=== PATIENT | female | born 1950 | race Caucasian/White ===

== ENCOUNTER 2018-01-16 18:46 | Emergency (ER) | payer OTHER, BC ==
[2018-01-16 19:18] VITALS: BP 157/76; PULSE 99; TEMP 98.3; BMI 31.6
[2018-01-16] MEDS ORDERED: ACETAMINOPHEN 325 MG TABLET (FP) PO ONE (20:01)
--- NOTE | 2018-01-16 20:02 | PDOC ---
History of Present Illness - General History Source: Patient Exam Limitations: No Limitations - History of Present Illness Initial Comments: 67 YOF with history of osteoporosis, spinal stenosis, migraines, graves disease s/p radioactive treatment, HLD, and HTN, presenting with left upper arm pain for 2 days. LUE pain described as achy, exacerbated with lifting and movement. +heavy lifting of groceries and large pet cat. No direct trauma or falls. Patient reports having elevated BP as a result of pain. Denies neck pain or back pain, paresthesia, weakness, chest pain headache, or dizziness. Surgical hx: tonsillectomy Social: non contributory, no etoh or tobacco use. 01/16/18 20:19 <Lizbeth Eagle - Last Filed: 01/16/18 20:19> - General History Source: Patient Exam Limitations: No Limitations <Ruth Swenson - Last Filed: 01/16/18 21:10> - General Chief Complaint: Pain Stated Complaint: left arm pain Time Seen by Provider: 01/16/18 19:12 Past History <Lizbeth Eagle - Last Filed: 01/16/18 20:19> - Past Medical History COPD: No Hypercholesterolemia: Yes Liver Disease: (liver hemangioma) Thyroid Disease: Yes Other medical history: migraine - Suicide/Smoking/Psychosocial Hx Smoking Status: No Smoking History: Never smoked Number of Cigarettes Smoked Daily: 0 Hx Alcohol Use: No Drug/Substance Use Hx: No Substance Use Type: None <Ruth Swenson - Last Filed: 01/16/18 21:10> - Past Medical History Allergies/Adverse Reactions: Allergies Allergy/AdvReac Type Severity Reaction Status Date / Time Penicillins Allergy Verified 01/16/18 19:01 methimazole [From Tapazole] AdvReac Severe Verified 01/16/18 19:02 Home Medications: Ambulatory Orders Ezetimibe/Simvastatin [Vytorin 10-10 mg Tablet] 1 each PO DAILY 07/15/11 Levothyroxine [Synthroid -] 88 mcg PO DAILY 07/15/11 Nadolol 20 mg PO DAILY 07/15/11 Cyclobenzaprine HCl [Flexeril -] 5 mg PO TID PRN #15 tablet 01/16/18 Ranitidine HCl [Zantac] 150 mg PO ASDIR 01/16/18 Review of Systems - Review of Systems Able to Perform ROS?: Yes Comments:: Constitutional: no fevers or chills. HEENT: no headache or dizziness. No congestion. No visual/hearing disturbances. CVS: no cp or syncope. Resp: no sob. No cough. Abdomen: no abdominal pain, nausea or vomiting. Genitourinary: no urinary sx, hematuria. MUSCULOSKELETAL: +Myalgia +Left arm pain. No swelling. No neck or back pain. SKIN: no redness or skin changes, no discharge, no rash. No wounds. Hematologic: no easy bruising/bleeding. NEUROLOGIC: No headache, dizziness, LOC or altered mental status. No weakness, numbness or tingling. All other systems reviewed and negative, or as documented in HPI. 01/16/18 20:19 <Lizbeth Eagle - Last Filed: 01/16/18 20:19> *Physical Exam - Vital Signs Last Vital Signs Temp Pulse Resp BP Pulse Ox 98.3 F 99 H 18 157/76 100 01/16/18 19:05 01/16/18 19:05 01/16/18 19:05 01/16/18 19:05 01/16/18 19:05 - Physical Exam Comments: General: NAD, well appearing Neck: no cervical tenderness or midline tenderness. Vascular: 2+ DP pulses symmetric and equal. Resp: CTAB, normal and even respirations, no respiratory distress CVS: RRR, no murmurs, 2+ peripheral pulses throughout, no peripheral edema Abdomen: soft, NTND, no peritoneal signs. Back: no midline tenderness, no stepoffs, FROM. MSK Upper Extremity: Shoulder abduction/adduction/flexion/extension and prox strength 5/5 actively against resistance, though unable to raise arm above 90 degrees at level of shoulder and above.. 5/5 shoulder shrug strength. deltoid sensation intact; sensation grossly intact in median/radial/ulnar distribution. distal meters superintendent strength 5/5. 2+ radialis pulses bilaterally and symmetric. no tenderness along deep venous system. +left biceps and upper arm muscle tenderness, worse with extension. No elbow or wrist or distal tenderness, FROM in all extrem Skin: color normal color, warm and well perfused. 01/16/18 20:20 <Lizbeth Eagle - Last Filed: 01/16/18 20:19> - Vital Signs Last Vital Signs Temp Pulse Resp BP Pulse Ox 98.3 F 99 H 18 157/76 100 01/16/18 19:05 01/16/18 19:05 01/16/18 19:05 01/16/18 19:05 01/16/18 19:05 <Ruth Swenson - Last Filed: 01/16/18 21:10> Heart Score/ECG Review - ECG Impressions Normal ECG: Yes Comment:: 01/16/18 20:02 EKG normal sinus rhythm, no interval abnormalities, narrow QRS, ST and T wave segments and morphology normal. Nonspecific T wave abnormalities <Ruth Swenson - Last Filed: 01/16/18 21:10> ED Treatment Course - Medications Given in the ED: ED Medications Discontinued Medications Generic Name Dose Route Start Last Admin Trade Name Moralesq PRN Reason Stop Dose Admin Acetaminophen 975 mg 01/16/18 20:01 01/16/18 20:06 Tylenol - PO 01/16/18 20:02 975 mg ONCE ONE Administration Cyclobenzaprine HCl 5 mg 01/16/18 20:15 01/16/18 20:06 Cyclobenzaprine Hcl PO 5 mg DAILY ARTHUR Administration <Lizbeth Eagle - Last Filed: 01/16/18 20:19> Medical Decision Making - Medical Decision Making 01/16/18 21:10 YUE 67 YOF with history of osteoporosis, spinal stenosis, migraines, graves disease s/p radioactive treatment, HLD, and HTN, presenting with left upper arm pain for 2 days. +heavy lifting Vital signs reviewed, wnl. Mild htn, but in pain EKG normal sinus rhythm, no interval abnormalities, narrow QRS, ST and T wave segments and morphology normal. Nonspecific T wave abnormalities ED course: analgesia with flexeril low dose and tylenol for left arm pain. Very reproducible in pain with heavy lifting and strenuous activity. Doubt cardiac, no cp, sob or dizziness or syncope. Doubt clinically based on HPI and PE that this is cardiovascular. No trauma, doubt fx or bony disturbances. No neck or back pain, doubt spinal or central etiology. Dispo: I discussed the physical exam findings, ancillary test results and final diagnoses with the patient. I answered all of the patient's questions. The patient was satisfied with the care received and felt comfortable with the discharge plan and treatment plan. The patient will return to the Emergency Department with any new, persistent or worsening symptoms. Supportive measures, avoid heavy lifting and strenuous activities. analgesia. <Ruth Swenson - Last Filed: 01/16/18 21:10> *DC/Admit/Observation/Transfer - Attestations Scribe Attestion: 01/16/18 20:20 Documentation prepared by MOON Bryant, acting as medical technologist prn for Ruth Swenson MD. <Lizbeth Eagle - Last Filed: 01/16/18 20:19> - Discharge Dispostion Decision to Admit order: No - Attestations Physician Attestion: 01/16/18 20:13 I, Ruth Swenson MD, attest that this document has been prepared under my direction and personally reviewed by me in its entirety. I further attest, that it accurately reflects all work, treatment, procedures and medical decision -making performed by me. <Ruth Swenson - Last Filed: 01/16/18 21:10> Diagnosis at time of Disposition: Left arm pain, Muscle strain, upper arm - Discharge Dispostion Disposition: HOME Condition at time of disposition: Stable - Prescriptions Prescriptions: Cyclobenzaprine HCl [Flexeril -] 5 mg PO TID PRN #15 tablet PRN Reason: Muscle Spasms - Referrals Referrals: Rik Mims MD [Staff Physician] - - Patient Instructions Printed Discharge Instructions: DI for Muscle Strain, DI for Arm Pain Additional Instructions: you most likely have a strain of your arm, does not sound cardiac or vascular may apply heat packs as needed, maximum 15 minutes flexeril three times a day as needed for muscle spasms, preferably at nighttime before you sleep. it may cause dizziness and sleepiness. tylenol as needed for pain. follow up with your doctor you can also sleep and rest your arm on pillow avoid straining or heavy lifting, ask for help and minimize trauma.
[2018-01-16] MEDS ORDERED: ACETAMINOPHEN 325 MG TABLET (FP) ONE (20:03)
[2018-01-16] MEDS ORDERED: CYCLOBENZAPRINE HCL 10 MG TABLET (FP) ONE (20:03)
[2018-01-16] MEDS ORDERED: CYCLOBENZAPRINE HCL 5 MG TABLET PO SCH (20:15)
--- NOTE | 2018-01-23 09:50 | EKG ---
Test Reason : Blood Pressure : / mmHG Vent. Rate : 096 BPM Atrial Rate : 096 BPM P-R Int : 176 ms QRS Dur : 084 ms QT Int : 372 ms P-R-T Axes : 056 -07 038 degrees QTc Int : 469 ms NORMAL SINUS RHYTHM NONSPECIFIC ST ABNORMALITY WHEN COMPARED WITH ECG OF 16-JUL-2011 08:56, NO SIGNIFICANT CHANGE WAS FOUND Confirmed by AL RUIZ MD ([id number]) on 01/23/2018 9:50:14 AM Referred By: MD AGUIAR Confirmed By:AL RUIZ MD
== END 2018-01-16 20:15 | disposition home or self-care (01) ==
LOC: FER 18:46
DX: M79.601 Pain in right arm (principal); S46.812A Strain of other muscles, fascia and tendons at shoulder and upper arm level, left arm, initial encounter; X58.XXXA Exposure to other specified factors, initial encounter; Y93.89 Activity, other specified; Y92.9 Unspecified place or not applicable; E78.00 Pure hypercholesterolemia, unspecified; E05.00 Thyrotoxicosis with diffuse goiter without thyrotoxic crisis or storm; E78.5 Hyperlipidemia, unspecified; I10 Essential (primary) hypertension
CPT/HCPCS: 93005; 99282-25

== ENCOUNTER 2018-01-18 10:42 | Emergency (ER) | payer OTHER, BC ==
[2018-01-18 10:55] VITALS: BP 135/70; PULSE 76; TEMP 98; BMI 31.6
--- NOTE | 2018-01-18 11:07 | PDOC ---
History of Present Illness - General Chief Complaint: Pain Stated Complaint: PAIN,LT ARM Time Seen by Provider: 01/18/18 11:00 History Source: Patient Exam Limitations: No Limitations - History of Present Illness Initial Comments: CHIEF COMPLAINT: 67 y/o afebrile female with OA, spinal stenosis, migraines, graves disease s/p radioactive tx, HLD, HTN c/o continued left shoulder and arm pain with decreased ROM. HISTORY OF PRESENT ILLNESS: [facility] the same issue. was cleared for cardiac etiology and discharged with flexeril and tylenol. The patient states she can't take the flexeril because it makes her too drowsy so she only takes at night. The tylenol does nothing and now her arm has even less mobility and more pain. She cannot put a bra or shirt on and can barely lift her arm. She denies new injury. Vital signs on arrival are within normal limits. REVIEW OF SYSTEMS: GENERAL/CONSTITUTIONAL: No fever/chills. No weakness. No weight change. MUSCULOSKELETAL: +left shoulder and upper arm pain. No neck or back pain. SKIN: No rash or easy bruising. NEUROLOGIC: No headache, vertigo, loss of consciousness, or loss of sensation. PHYSICAL EXAM: VITAL_SIGNS: within normal limits GENERAL_APPEARANCE: alert, cooperative, mo obvious discomfort. MENTAL_STATUS: speech clear, oriented X 3, responds appropriately to questions. NEURO: motor intact and sensory intact in injured extremity. EXTREMITIES: Unable to abduct left arm > 45 degrees, a significant decrease of 90 degrees on 01/16/18. TTP of left AC joint. Patient cannot put her left arm above her head or behind her back. SKIN: warm, dry, good color. Past History - Past Medical History Allergies/Adverse Reactions: Allergies Allergy/AdvReac Type Severity Reaction Status Date / Time Penicillins Allergy Verified 01/18/18 10:55 methimazole [From Tapazole] AdvReac Severe Verified 01/18/18 10:55 Home Medications: Ambulatory Orders Ezetimibe/Simvastatin [Vytorin 10-10 mg Tablet] 1 each PO DAILY 07/15/11 Levothyroxine [Synthroid -] 88 mcg PO DAILY 07/15/11 Nadolol 20 mg PO DAILY 07/15/11 Cyclobenzaprine HCl [Flexeril -] 5 mg PO TID PRN #15 tablet 01/16/18 Ranitidine HCl [Zantac] 150 mg PO ASDIR 01/16/18 COPD: No Hypercholesterolemia: Yes Liver Disease: (liver hemangioma) Thyroid Disease: Yes - Suicide/Smoking/Psychosocial Hx Smoking Status: No Smoking History: Never smoked Number of Cigarettes Smoked Daily: 0 Hx Alcohol Use: No Drug/Substance Use Hx: No Substance Use Type: None *Physical Exam - Vital Signs Last Vital Signs Temp Pulse Resp BP Pulse Ox 98 F 76 18 135/70 99 01/18/18 10:52 01/18/18 10:52 01/18/18 10:52 01/18/18 10:52 01/18/18 10:52 Medical Decision Making - Medical Decision Making A/P: 67 y/o female with left rotator cuff tendonopathy. The patient states she can tolerate NSAIDs and is not on a blood thinner. Will give IM toradol and give an referral for ortho to get an rx for an MRI. Suggested the patient ice her arm and walk her hand up a wall to maintain mobility. Suggested the patient take motrin or advil if she can tolerate it instead of tylenol. The patient verbalizes understanding of all instructions, has no further questions and is awaiting discharge. *DC/Admit/Observation/Transfer Diagnosis at time of Disposition: Rotator cuff injury Qualifiers: Encounter type: initial encounter Laterality: left Qualified Code(s): S46.002A - Unspecified injury of muscle(s) and tendon(s) of the rotator cuff of left shoulder, initial encounter - Discharge Dispostion Disposition: HOME Condition at time of disposition: Fair - Referrals Referrals: Rik Mims MD [Primary Care Provider] - Milton Amor MD [Staff Physician] - - Patient Instructions Printed Discharge Instructions: DI for Rotator Cuff Injury Additional Instructions: Discharge Instructions: -You most likely injured your rotator cuff -You can take ADvil or Ibuprofen if you can tolerate it for pain/inflammation -Continue to ice your shoulder and walk your hand up the wall to maintain mobility. -Call Dr. Amor and Dr. Mims tomorrow for a prescription for an MRI. - Post Discharge Activity
[2018-01-18] MEDS ORDERED: KETOROLAC TROMETHAMINE 60 MG/2 ML VIAL IM ONE (11:36)
[2018-01-18] MEDS ORDERED: KETOROLAC TROMETHAMINE 60 MG/2 ML VIAL ONE (11:46)
== END 2018-01-18 11:57 | disposition home or self-care (01) ==
LOC: JERFT 10:42
PROC: 3E0233Z Introduction of Anti-inflammatory into Muscle, Percutaneous Approach (ICD-10-PCS; principal; 2018-01-18)
DX: S46.002A Unspecified injury of muscle(s) and tendon(s) of the rotator cuff of left shoulder, initial encounter (principal); X58.XXXA Exposure to other specified factors, initial encounter; Y93.89 Activity, other specified; Y92.89 Other specified places as the place of occurrence of the external cause; Y99.8 Other external cause status; I10 Essential (primary) hypertension; E78.5 Hyperlipidemia, unspecified; M19.90 Unspecified osteoarthritis, unspecified site; E05.00 Thyrotoxicosis with diffuse goiter without thyrotoxic crisis or storm; M48.00 Spinal stenosis, site unspecified
CPT/HCPCS: 96372; 99281-25

== ENCOUNTER 2023-09-12 06:18 | Day surgery (SDC) | payer OTHER, BC ==
[2023-09-08 15:58] VITALS: BMI 29.5
[2023-09-12] MEDS ORDERED: LIDOCAINE HCL/PF 2% SDV 5ML VIAL ONE (07:13)
[2023-09-12] MEDS ORDERED: PROPOFOL 200 ML ONE (07:14)
[2023-09-12] MEDS ORDERED: PHENYLEPHRINE HCL 10 MG/1 ML SINGLE DOSE VIAL ONE (07:16)
[2023-09-12] MEDS ORDERED: GLYCOPYRROLATE 0.2 MG/1 ML VIAL ONE (07:29)
[2023-09-12] MEDS ORDERED: ePHEDrine SULFATE 50 MG/1 ML AMPULE ONE (07:54)
[2023-09-12 08:16] VITALS: PULSE 40; RESP 18; TEMP 97.3
[2023-09-12 09:19] VITALS: BP 107/65
== END 2023-09-12 09:07 | disposition home or self-care (01) ==
LOC: FASU-ENDO 06:18
PROVIDERS: ATTEND Internal Medicine Gastroenterology
PROC: 0DJD8ZZ Inspection of Lower Intestinal Tract, Via Natural or Artificial Opening Endoscopic (ICD-10-PCS; principal; 2023-09-12 07:46)
DX: Z12.11 Encounter for screening for malignant neoplasm of colon (principal); K64.1 Second degree hemorrhoids
CPT/HCPCS: 93005; 93010

== ENCOUNTER 2023-11-14 07:24 | Day surgery (SDC) | payer OTHER, BC ==
[2023-11-07 16:27] VITALS: BMI 29.5
[2023-11-14] MEDS ORDERED: LIDOCAINE HCL/PF 2% SDV 5ML VIAL ONE (08:17)
[2023-11-14] MEDS ORDERED: PROPOFOL 140 ML ONE (08:18)
[2023-11-14 09:09] VITALS: RESP 16; TEMP 97.5
[2023-11-14 09:59] VITALS: BP 137/54; PULSE 51
== END 2023-11-14 10:00 | disposition home or self-care (01) ==
LOC: FASU-ENDO 07:24
PROVIDERS: ATTEND Internal Medicine Gastroenterology
PROC: 0DB68ZX Excision of Stomach, Via Natural or Artificial Opening Endoscopic, Diagnostic (ICD-10-PCS; 2023-11-14)
PROC: 0DB48ZX Excision of Esophagogastric Junction, Via Natural or Artificial Opening Endoscopic, Diagnostic (ICD-10-PCS; 2023-11-14)
PROC: 0DB98ZX Excision of Duodenum, Via Natural or Artificial Opening Endoscopic, Diagnostic (ICD-10-PCS; principal; 2023-11-14 08:43)
DX: K29.50 Unspecified chronic gastritis without bleeding (principal); K20.90 Esophagitis, unspecified without bleeding
CPT/HCPCS: 88305-TC; 88342-TC